=== PATIENT | male | born 1985 | race Caucasian/White ===

== ENCOUNTER 2020-10-17 20:33 | Emergency (ER) | payer OTHER ==
[~2020-10-17] VITALS: Ht 177.8 cm; Wt 97.7 kg
[2020-10-17] MEDS ORDERED: SODIUM CHLORIDE 0.9% 250 ML IRRIG SOLUTION BOTTLE IRRIG ONE (21:30)
[2020-10-17] MEDS ORDERED: PERTUSS(ACELL),DIPH,TET VAC/PF 0.5 ML VIAL IM ONE (21:30)
[2020-10-17] MEDS ORDERED: LIDOCAINE 1% 10 ML VIAL ONE (23:27)
[2020-10-17] MEDS ORDERED: LIDOCAINE 1% 10 ML VIAL ID ONE (23:30)
[2020-10-18 00:53] VITALS: BP 120/68
== END 2020-10-18 01:21 | disposition home or self-care (01) ==
LOC: EMS 20:33
DX: S81.012A Laceration without foreign body, left knee, initial encounter (principal); S51.812A Laceration without foreign body of left forearm, initial encounter; W19.XXXA Unspecified fall, initial encounter; Y93.89 Activity, other specified; Y92.89 Other specified places as the place of occurrence of the external cause; Y99.8 Other external cause status
CPT/HCPCS: 12005; 90471; 90715; 99283; J3490